=== PATIENT | female | born 1995 | race Caucasian/White ===

== ENCOUNTER → 2020-10-25 | Outpatient (CLI) | payer BC | LOC: M PLALAB 15:28 | PROVIDERS: ATTEND Advanced Practice Midwife | DX: Z34.81 Encounter for supervision of other normal pregnancy, first trimester (principal); Z3A.00 Weeks of gestation of pregnancy not specified ==

== ENCOUNTER → 2020-10-31 | Outpatient (REF) | payer BC | LOC: M SFHCWAGY 12:59 | PROVIDERS: ATTEND Advanced Practice Midwife | DX: O44.02 Complete placenta previa NOS or without hemorrhage, second trimester (principal); Z3A.00 Weeks of gestation of pregnancy not specified ==

== ENCOUNTER → 2020-12-21 | Outpatient (CLI) | payer BC ==
--- NOTE | 2020-12-21 12:44 | REP ---
INDICATION: ANATOMY COMPARISON: None. TECHNIQUE: Transabdominal obstetrical ultrasound with color Doppler evaluation. FINDINGS: Examination demonstrates a single live intrauterine in breech presentation. motion is identified by technologist. Placenta is noted posterior, grade 1 and low lying approximately 1.1 cm from the closed internal os. Amniotic fluid volume is normal. Cervix measures 4.8 cm in length and appears closed. Selected gestational age: 20 weeks 4 days with CARRINGTON 05/06/2021. Gestational age by current measurements 20 weeks 2 days with CARRINGTON 05/08/2021. FHR equals 144 beats per minute. Estimated weight 336 grams (25thpercentile). Anatomical assessment demonstrates normal structures including cranium, choroid plexus, cavum, cerebellum/posterior fossa, facial features, lungs, diaphragm, stomach, cord insertion/three-vessel cord, kidneys/bladder, spine, and extremities. Limited evaluation of the facial profile and heart/ventricular outflow tracts. IMPRESSION: 1. Single live intrauterine in breech presentation demonstrating appropriate estimated weight. 2. Low lying placenta 1.1 cm from the closed internal os. 3. Limited evaluation of the facial profile and heart/ventricular outflow tracts. Remainder of the anatomical assessment is complete and normal. <Electronically signed by Bharat Song > 12/21/20 [id number]
== END ==
LOC: M WHC 10:35
PROVIDERS: ATTEND Advanced Practice Midwife
DX: O44.02 Complete placenta previa NOS or without hemorrhage, second trimester (principal)

== ENCOUNTER → 2021-01-17 | Outpatient (CLI) | payer BC ==
--- NOTE | 2021-01-17 14:35 | REP ---
INDICATION: F/U ANATOMY/LOW LYING PLACENTA COMPARISON: 12/21/2020 TECHNIQUE: Transabdominal obstetrical ultrasound with color Doppler evaluation. FINDINGS: Examination demonstrates a single live intrauterine in cephalic presentation. motion is identified by technologist. Placenta is noted posterior and grade 1 without evidence for placenta previa or abruption. Amniotic fluid volume is normal. Cervix measures 4.4 cm in length and appears closed.. Selected gestational age: Twenty-four weeks 3 days with CARRINGTON 05/06/2021. Gestational age by current measurements 24 weeks 0 days with CARRINGTON 05/09/2021. FHR equals 139 beats per minute. Estimated weight 668 grams (30thpercentile). Anatomical assessment demonstrates normal structures including cranium, choroid plexus, cavum, cerebellum/posterior fossa, facial features, lungs, four-chamber heart/ventricular outflow tracts, diaphragm, stomach, cord insertion/three-vessel cord, kidneys/bladder, spine, and extremities. IMPRESSION: 1. Single live intrauterine in cephalic presentation. 2. Posterior grade 1 placenta without evidence for previa and no evidence for low lying position. 3. Anatomical assessment is complete and normal. <Electronically signed by Bharat Song > 01/17/21 [id number]
== END ==
LOC: M WHC 12:25
PROVIDERS: ATTEND Advanced Practice Midwife
DX: Z36.2 Encounter for other antenatal screening follow-up (principal); Z3A.24 24 weeks gestation of pregnancy

== ENCOUNTER → 2021-01-23 | Outpatient (CLI) | payer BC ==
[~2021-01-23] MED LIST: ACET-683 PO; COLA100C5 PO; IBUP-1022 PO; MULTTAB20 PO; TUMS750C5 PO
[2021-01-23 13:54] LABS: HEMATOCRIT 36.7 % (36.0-47.0); HEMOGLOBIN 11.9 g/dl (12.0-15.5); MEAN CORPUSCULAR HEMOGLOBIN 30.7 pg (27.0-33.0); MEAN CORPUSCULAR HGB CONC 32.4 g/dl (32.0-36.5); MEAN CORPUSCULAR VOLUME 94.6 fl (80.0-96.0); PLATELET COUNT, AUTOMATED 208 10^3/uL (150-450); RED BLOOD COUNT 3.88 10^6/uL (4.00-5.40); WHITE BLOOD COUNT 11.5 10^3/uL (4.0-10.0)
== END ==
LOC: M PLALAB 10:32
PROVIDERS: ATTEND Advanced Practice Midwife
DX: O44.42 Low lying placenta NOS or without hemorrhage, second trimester (principal); Z3A.00 Weeks of gestation of pregnancy not specified

== ENCOUNTER → 2021-04-08 | Outpatient (REF) | payer BC | LOC: M SFHCWAGY 17:41 | PROVIDERS: ATTEND Obstetrics & Gynecology | DX: Z34.03 Encounter for supervision of normal first pregnancy, third trimester (principal) ==

== ENCOUNTER → 2021-04-18 | Outpatient (CLI) | payer BC ==
--- NOTE | 2021-04-19 06:33 | REP ---
INDICATION: GROWTH LOW LYING PLACENAT NOS, OR WO HEMORRHAGE COMPARISON: 01/17/2021 TECHNIQUE: Transabdominal obstetrical ultrasound with color Doppler evaluation. FINDINGS: Examination demonstrates a single live intrauterine in cephalic presentation. motion is identified by technologist. Placenta is noted posterior and grade 2 without evidence for placenta previa or abruption. Amniotic fluid volume is normal. Cervix measures 3.9 cm in length and appears closed.. Selected gestational age: 37 weeks 3 days with CARRINGTON 05/06/2021. Gestational age by current measurements 37 weeks 1 day with CARRINGTON 05/08/2021. FHR equals 125 beats per minute. JASON: 11.4 cm Estimated weight 3119 grams (50thpercentile). IMPRESSION: Single live advanced gestation in cephalic presentation demonstrating appropriate estimated weight. <Electronically signed by Bharat Song > 04/19/21 0629
== END ==
LOC: M WHC 15:34
PROVIDERS: ATTEND Obstetrics & Gynecology
DX: O44.43 Low lying placenta NOS or without hemorrhage, third trimester (principal); Z3A.37 37 weeks gestation of pregnancy

== ENCOUNTER 2021-05-13 08:18 | Inpatient (IN) | payer BC ==
[~2021-05-13] VITALS: Ht 170.2 cm; Wt 87.2 kg
[2021-05-13] VITALS (26 sets, daily range): BP systolic 120–148; BP diastolic 61–95
[2021-05-13] MEDS ORDERED: MULTTAB20 PO (08:38)
[2021-05-13] MEDS ORDERED: TUMS750C5 PO (08:38)
[2021-05-13] MEDS ORDERED: HOME MED LIST COMPLETE! XX SCH (08:40)
[2021-05-13] MEDS ORDERED: LACTATED RINGER'S 1000 ML IV STA (08:43)
[2021-05-13] MEDS ORDERED: TRANEXAMIC ACID INJection 1,000 MG in NS 100 ML IV PRN (08:45)
[2021-05-13] MEDS ORDERED: LIDOCAINE 1% MDV 20ML VIAL INFIL PRN (08:45)
[2021-05-13] MEDS ORDERED: CARBOPROST TROMETHAMINE 250 MCG/ML AMP IM PRN (08:45)
[2021-05-13] MEDS ORDERED: METHYLERGONOVINE MALEATE 0.2 MG/ML VIAL (J2210) IM PRN (08:45)
[2021-05-13 09:42] LABS: HEMATOCRIT 36.6 % (36.0-47.0); HEMOGLOBIN 11.8 g/dl (12.0-15.5); MEAN CORPUSCULAR HEMOGLOBIN 30.6 pg (27.0-33.0); MEAN CORPUSCULAR HGB CONC 32.2 g/dl (32.0-36.5); MEAN CORPUSCULAR VOLUME 95.1 fl (80.0-96.0); PLATELET COUNT, AUTOMATED 194 10^3/uL (150-450); RED BLOOD COUNT 3.85 10^6/uL (4.00-5.40); WHITE BLOOD COUNT 11.7 10^3/uL (4.0-10.0)
[2021-05-13] MEDS: miSOPROStol 50MCG 1/2 TABLET PO SCH ×2 (10:28→16:03)
--- NOTE | 2021-05-13 12:11 | HPEPDOC ---
Obstetrical History & Physical General Date of Admission May 13, 2021 at 08:18 Primary Care Physician: AIDA DA SILVA CNM History of Present Illness Sia is a 26 year old at 41 weeks gestation with an CARRINGTON of 05/06/21 confirmed by first trimester ultrasound. She established care at [facility] and her has been complicated by + COVID 03/04/21 and low-lying placenta 1.1 cm from internal os, which resolved. She presents to labor and delivery for IOL for postdates . She reports good movement. She denies vaginal bleeding, uterine contractions, or loss of fluid. Chief Complaint: Induction of labor Information Provided By: Patient Age: 26 : 1 Term: 0 Pre-term: 0 Abortions: 0 Care Care: Good Care Dating Final EDC: May 06, 2021 Final EDC by: 1st trimester (US) LMP: Jul 30, 2020 EGA at Admission: 41 Antepartum Course Height (inches): 67 Pre- weight (lbs.): 165.2 Admission Weight (lbs.): 189.6 Change in Weight (lbs.): 24 Past Medical History Past Obstetrical History : Past Obstetrical History: [employer] History: No pertinent history Past Medical History Medical History + Covid in February Surgical History: Denies/None Family History Significant Family History: Cancer Family History mother and MGM with breast cancer, MGF with pancreatic cancer, PGF with bladder cancer Social History Social history FOB is present and supportive in room Marital Status: Single Family situation: Spouse/partner home Psychosocial History: No pertinent psych hx * Smoker: non-smoker Alcohol: Denies Drugs: denies Abuse Violence Screening Have you been hit/kicked/slapp: No Have you been sexually assault: No Allergies Coded Allergies: Penicillins (Verified Allergy, Intermediate, 05/13/21) Medications Scheduled No122/Iron/Folic Acid ( Multi Tablet) 1 Each Tablet, 1 TAB PO DAILY Scheduled PRN Calcium Carbonate (Tums) 300 Mg Tab.chew, 750 MG PO Q6HP PRN for HEARTBURN Physical Examination Physical Examination GENERAL: Alert and oriented times three. ABDOMEN: Gravid and non-tender to touch. FETUS: Is vertex (VTX) by sterile vaginal examination (SVE), fetus is vertex (VTX) by Jeff. SVE reveals 1/50%/-3. Cervix is posterior. FHR 120 with moderate variability absence of uterine contractions. LUNGS: Respiration regular and nonlabored, no use of accessory muscles. EXTREMITIES: Bilateral pedal edema. Vital Signs/I&O Vital Signs Date Time Temp Pulse Resp B/P (MAP) Pulse Ox O2 Delivery O2 Flow Rate FiO2 05/13/21 11:30 75 120/70 (87) 05/13/21 09:09 98.2 Laboratory Data 24H LABS Laboratory Tests 2 05/13/21 08:27: Serology Scanned Report Hepatitis B Testing 05/13/21 09:22: Nucleated Red Blood Cells % (auto) 0.0, Syphilis Serology NONREACTIVE CBC/BMP Laboratory Tests 05/13/21 09:22 Urine Culture: No Growth Pertinent Laboratoy Data Blood Type: O+ RBC Antibody Screen: Negative HIV: Negative Hepatitis B: Negative Hepatitis C: Negative Rapid Plasma Reagin: Nonreactive Rubella: Immune Varicella: Immune Chlamydia/Gonorrhea: Negative Group B Streptococcus: Negative Quad Screen Test: Negative Cystic Fibrosis: Negative Glucose Tolerance Test: 80 Anatomy Ultrasound Placenta Location: Posterior Normal Anatomy: Yes Placenta Previa: No (low lying placenta, 1.1 cm from internal os) Estimated Weight (grams): 336 Vaginal Examination Dilation: 1cm Effacement: 50% Station: -3 Cervical Consistency: Medium Cervical Position: Posterior Presentation: Cephalic presentation Assessment Heart Rate (FHR): 120 Variability: Moderate Accelerations: None Decelerations: None Tocometer Contractions: No Multi-drug resistant Organism: No history of MDRO Assessment/Plan Assessment IUP at 40 6/7, IOL for postdates, reassuring tracing, GBS negative Plan Admit to labor and delivery. Counselled on IOL, use of cytotec for cervical ripening, damon bulb when appropriate, and IV pitocin once cervix is favorable. Diet: regular. Group B Streptococcus (GBS) negative. Labs and intravenous (IV) per unit protocol. Anesthesia consult per patient request. Lactated Ringers (LR): Bolus 800 mL, then at 125 mL/hr prior to epidural if desired. Anticipate cervical ripening. AIDA DA SILVA CNM May 13, 2021 12:11
[2021-05-13] MEDS ORDERED: OXYTOCIN 30 UNITS IN 0.9% NaCl 500ML IV BAG (J2590) As Ordered ONE (20:17)
[2021-05-13] MEDS ORDERED: LR 1,000 ML IV SCH (20:25)
[2021-05-13] MEDS ORDERED: OXYTOCIN DRIP 30 UNITS in IV 1 EA IV SCH (20:25)
--- NOTE | 2021-05-13 20:25 | IPNPDOC ---
Obstetrical Progress Note Date of Service May 13, 2021 Subjective ambulating in room, coping well with induction Objective Vital Signs Date Time Temp Pulse Resp B/P (MAP) Pulse Ox O2 Delivery O2 Flow Rate FiO2 05/13/21 18:02 97.9 74 16 138/80 (99) 05/13/21 13:55 Room Air Assessment Heart Rate (FHR): 130 Variability: Moderate Accelerations: Positive Decelerations: None Heart Rate Tracing: Category I Tocometer Contractions: Yes Frequency: every 2-5 min. Strength: palpated as strong Sterile Vaginal Examination Dilation: 3 cm Effacement (%): 50% Station: -2 Cervical Consistency: Soft Cervical Position: Anterior Postion/Presentation: Cephalic presentation Assessment and Plan Age: 26 : 1 Term: 0 Pre-term: 0 Abortions: 0 Livin Weeks & Days 41.0 Status: Reassuring Group B Streptococcus: Negative Anticipate: Vaginal Delivery AIDA DA SILVA CNM May 13, 2021 20:25
[2021-05-13] MEDS ORDERED: FENTANYL 2MCG/ML ROPIVACAINE 0.2% IN 0.9% NACL 100ML IVBAG As Ordered ONE (21:45)
[2021-05-13] MEDS ORDERED: ONDANSETRON 4MG/2ML VIAL IV PRN (22:05)
[2021-05-13] MEDS ORDERED: ePHEDrine SULFATE 25 MG/5 ML(5MG/ML) SYRINGE IV PRN (22:05)
[2021-05-13] MEDS ORDERED: diphenhydrAMINE 50MG/ML VIAL (J1200) IV PRN (22:05)
[2021-05-13] MEDS ORDERED: REFRIGERATOR IV KEYS XX PRN (22:05)
[2021-05-13] MEDS ORDERED: NALOXONE INJ 0.4MG/1ML VIAL (J2310 PER 1MG) IV PRN (22:05)
[2021-05-13] MEDS ORDERED: FENTANYL/ROPIVACAINE/NACL BAG 100 ML EPIDURAL SCH (22:05)
[2021-05-13] MEDS ORDERED: EPIDURAL/PCA KEYS XX PRN (22:05)
[2021-05-13] MEDS ORDERED: EPIDURAL COMMENT XX SCH (22:05)
[2021-05-13] MEDS ORDERED: LACTATED RINGER'S 1000 ML IV PRN (22:05)
[2021-05-14] VITALS (17 sets, daily range): BP systolic 93–150; BP diastolic 56–78
[2021-05-14] MEDS ORDERED: CALCIUM CARBONATE 500 MG CHEW U/D PO PRN (00:30)
--- NOTE | 2021-05-14 01:16 | IPNPDOC ---
Obstetrical Progress Note Date of Service May 14, 2021 Subjective Patient reports she is comfortable with her epidural. Objective Vital Signs Date Time Temp Pulse Resp B/P (MAP) Pulse Ox O2 Delivery O2 Flow Rate FiO2 05/13/21 23:22 97.6 68 18 130/69 (89) Room Air 05/13/21 22:44 99 Assessment Heart Rate (FHR): 120 Variability: Moderate Decelerations: Late (resolved with position change after vaginal exam) Tocometer Contractions: Yes Frequency: regular, other (2 to 4 cm) Sterile Vaginal Examination Dilation: 4 cm (4-5 cm) Effacement (%): 80% Station: -1 Cervical Consistency: Soft Cervical Position: Anterior Postion/Presentation: Cephalic presentation Assessment and Plan Age: 26 : 1 Term: 0 Pre-term: 0 Abortions: 0 Livin EGA at Admission: 41 Weeks & Days 41.1 weeks gestation Status: Reassuring Group B Streptococcus: Negative Anticipate: Vaginal Delivery Additional Comments IV Pitocin is at 2 mu/min. AIDA DA SILVA CNM May 14, 2021 01:16
--- NOTE | 2021-05-14 07:16 | DNPDOC ---
[facility] Delivery Note Delivery Note DATE OF DELIVERY: 05/14/2021 PREDELIVERY DIAGNOSIS: 41-0/7 weeks' gestation and induction of labor. POST DELIVERY DIAGNOSIS: Delivered. PROCEDURE: Spontaneous vaginal delivery at 0643. BOOTH SUPERVISOR: Aida Messer CNM and VENTURA Crow ANESTHESIA: epidural. ESTIMATED BLOOD LOSS: 300 mL. FINDINGS: 6 pounds 11 ounces; 3020 grams, female , Score 9/9, nuchal cord times x 1. DELIVERY SUMMARY: Sia is a 26-year-old 1 now para 1001 who was admitted to labor and delivery for induction of labor for postdates. She was given misoprostol for cervical ripening and IV Pitocin for induction. She had SROM at 1740 to a large amount of clear fluid. She requested an epidural for pain management. Sia progressed to fully dilated at 0435 and pushed to a living female at 0643 in the BRITTANEY position with restitution to ROT. A nuchal cord x 1 was noted. The anterior shoulder was delivered with gentle downward traction and the corpus was somersaulted through the cord. [place] placed on maternal abdomen active and crying. The cord was clamped x2 after pulsation ceased and cut by the father of the baby. The placenta was delivered at 0648 via Carlson with intact membranes. Hemostasis was achieved with IV Pitocin and fundal massage. The cervix, vagina, and perineum was inspected and a first degree perineal laceration was noted and repaired with 3.[address]-1. Mom plans to breastfeed. Counts of instruments and sponges are correct. Mom and baby are in stable condition. AIDA MESSER CNM May 14, 2021 07:16
[2021-05-14] MEDS ORDERED: METHYLERGONOVINE MALEATE 0.2 MG TAB PO PRN (08:20)
[2021-05-14] MEDS ORDERED: ACETAMINOPHEN TAB 650MG DOSE (2X325MG) PO PRN (08:20)
[2021-05-14] MEDS ORDERED: DOCUSATE SODIUM 100MG CAPSULE PO PRN (08:20)
[2021-05-14] MEDS ORDERED: IBUPROFEN 600MG TAB PO PRN (08:20)
[2021-05-14] MEDS ORDERED: ANUSOL HC CREAM 30GM TOP PRN (08:20)
[2021-05-14] MEDS ORDERED: MEASLES,MUMPS,RUBELLA VACCINE INJ (MMR-II) (90707) SC SCH (08:20)
[2021-05-14] MEDS ORDERED: RHOGAM 300 MCG (1500 IU) INJ (J2790) IM SCH (08:20)
[2021-05-14] MEDS ORDERED: DIBUCAINE 1% OINTMENT 30GM TOP PRN (08:20)
[2021-05-14] MEDS ORDERED: MOM 30ML SUSPENSION UDC PO PRN (08:20)
[2021-05-14] MEDS: IBUPROFEN 800 MG TAB PO PRN ×2 (08:44→16:54)
[2021-05-14] MEDS: PRENATAL VITAMINS CHEWABLE TABLET PO SCH (09:46)
[2021-05-14] MEDS: ACETAMINOPHEN 500 MG TAB PO PRN (14:21)
[2021-05-15] MEDS: ACETAMINOPHEN 500 MG TAB PO PRN (01:37)
[2021-05-15 06:16] VITALS: BP 119/59
[2021-05-15] MEDS: PRENATAL VITAMINS CHEWABLE TABLET PO SCH (07:57)
[2021-05-15] MEDS: IBUPROFEN 800 MG TAB PO PRN ×2 (07:57→18:41)
[2021-05-15 18:04] VITALS: BP 126/66
[2021-05-16] MEDS: IBUPROFEN 800 MG TAB PO PRN (04:33)
[2021-05-16] MEDS: ACETAMINOPHEN 500 MG TAB PO PRN (05:39)
[2021-05-16 06:00] VITALS: BP 131/73
[2021-05-16] MEDS: PRENATAL VITAMINS CHEWABLE TABLET PO SCH (09:44)
[2021-05-16] MEDS ORDERED: ACET-683 PO (11:21)
[2021-05-16] MEDS ORDERED: COLA100C5 PO (11:21)
[2021-05-16] MEDS ORDERED: IBUP-1022 PO (11:21)
== END 2021-05-16 13:40 | disposition home or self-care (01) | DRG 560 ==
LOC: M LDI 08:18 → M OBS 05-14 09:23
PROVIDERS: ADMIT Advanced Practice Midwife; ATTEND Advanced Practice Midwife
PROC: 3E033VJ Introduction of Other Hormone into Peripheral Vein, Percutaneous Approach (ICD-10-PCS; 2021-05-13)
PROC: 3E0DXGC Introduction of Other Therapeutic Substance into Mouth and Pharynx, External Approach (ICD-10-PCS; 2021-05-13)
PROC: 10E0XZZ Delivery of Products of Conception, External Approach (ICD-10-PCS; principal; 2021-05-14)
PROC: 0HQ9XZZ Repair Perineum Skin, External Approach (ICD-10-PCS; 2021-05-14)
DX: O48.0 Post-term pregnancy (principal); O69.81X0 Labor and delivery complicated by cord around neck, without compression, not applicable or unspecified; Z37.0 Single live birth; Z3A.41 41 weeks gestation of pregnancy; Z88.0 Allergy status to penicillin; O70.0 First degree perineal laceration during delivery

== ENCOUNTER → 2021-09-20 | Outpatient (REF) | payer BC | LOC: M SFHCWAGY 17:12 | PROVIDERS: ATTEND Advanced Practice Midwife | DX: Z12.4 Encounter for screening for malignant neoplasm of cervix (principal) ==

== ENCOUNTER → 2021-09-20 | Outpatient (CLI) | payer BC | LOC: M PLALAB 14:51 | PROVIDERS: ATTEND Advanced Practice Midwife | DX: Z80.3 Family history of malignant neoplasm of breast (principal) ==

== ENCOUNTER → 2022-12-04 | Outpatient (CLI) | payer MEDICARE, OTHER ==
[2022-12-04 14:04] LABS: HEMATOCRIT 45.2 % (36.0-47.0); HEMOGLOBIN 14.7 g/dl (12.0-15.5); MEAN CORPUSCULAR HEMOGLOBIN 29.4 pg (27.0-33.0); MEAN CORPUSCULAR HGB CONC 32.5 g/dl (32.0-36.5); MEAN CORPUSCULAR VOLUME 90.4 fl (80.0-96.0); PLATELET COUNT, AUTOMATED 257 10^3/uL (150-450); WHITE BLOOD COUNT 9.7 10^3/uL (4.0-10.0)
[2022-12-04 15:00] LABS: HIV 1&2 SCREEN NEGATIVE (NEGATIVE)
[2022-12-04 15:08] LABS: HEPATITIS C VIRUS ABY INDEX < 0.0 INDEX (<0.8)
[2022-12-04 15:41] LABS: GC DNA AMPLIFICATION NEGATIVE (NEGATIVE)
== END ==
LOC: M PLALAB 10:23
PROVIDERS: ATTEND Obstetrics & Gynecology
DX: Z34.91 Encounter for supervision of normal pregnancy, unspecified, first trimester (principal)

== ENCOUNTER → 2023-02-03 | Outpatient (CLI) | payer MEDICARE, OTHER | LOC: M WHC 14:17 | PROVIDERS: ATTEND Obstetrics & Gynecology | DX: Z34.80 Encounter for supervision of other normal pregnancy, unspecified trimester (principal); Z3A.19 19 weeks gestation of pregnancy ==

== ENCOUNTER → 2023-03-27 | Outpatient (CLI) | payer OTHER ==
[2023-03-27 19:09] LABS: HEMATOCRIT 37.6 % (36.0-47.0); MEAN CORPUSCULAR HEMOGLOBIN 29.9 pg (27.0-33.0); MEAN CORPUSCULAR HGB CONC 31.9 g/dl (32.0-36.5); MEAN CORPUSCULAR VOLUME 93.8 fl (80.0-96.0); PLATELET COUNT, AUTOMATED 228 10^3/uL (150-450); RED BLOOD COUNT 4.01 10^6/uL (4.00-5.40); WHITE BLOOD COUNT 10.9 10^3/uL (4.0-10.0)
== END ==
LOC: M PLALAB 14:50
PROVIDERS: ATTEND Obstetrics & Gynecology
DX: Z34.92 Encounter for supervision of normal pregnancy, unspecified, second trimester (principal)

== ENCOUNTER → 2023-05-29 | Outpatient (REF) | payer OTHER, MEDICARE | LOC: M SFHCWAGY 16:56 | PROVIDERS: ATTEND Obstetrics & Gynecology | DX: Z36.89 Encounter for other specified antenatal screening (principal); Z3A.36 36 weeks gestation of pregnancy ==

== ENCOUNTER 2023-06-24 11:39 | Inpatient (IN) | payer OTHER, MEDICARE ==
[~2023-06-24] VITALS: Ht 170.2 cm; Wt 87.5 kg
[2023-06-24] VITALS (21 sets, daily range): BP systolic 112–148; BP diastolic 56–79; O2SAT 97
[2023-06-24] MEDS ORDERED: OXYTOCIN INJ 10UNITS/ML 1ML VIAL IM PRN (12:10)
[2023-06-24] MEDS ORDERED: METHYLERGONOVINE MALEATE 0.2MG/ML 1ML VIAL IM PRN (12:10)
[2023-06-24] MEDS ORDERED: LIDOCAINE 1% MDV 20ML VIAL INFIL PRN (12:10)
[2023-06-24] MEDS ORDERED: CARBOPROST TROMETHAMINE 250 MCG/ML AMP IM PRN (12:10)
[2023-06-24] MEDS ORDERED: TRANEXAMIC ACID INJection 1,000 MG in NS 100 ML IV PRN (12:10)
[2023-06-24] MEDS ORDERED: OXYTOCIN DRIP 30 UNITS in IV 1 EA IV PRN ×4 (12:10)
[2023-06-24 12:48] LABS: HEMATOCRIT 36.7 % (36.0-47.0); MEAN CORPUSCULAR HEMOGLOBIN 29.3 pg (27.0-33.0); MEAN CORPUSCULAR HGB CONC 32.7 g/dl (32.0-36.5); MEAN CORPUSCULAR VOLUME 89.7 fl (80.0-96.0); PLATELET COUNT, AUTOMATED 219 10^3/uL (150-450); RED BLOOD COUNT 4.09 10^6/uL (4.00-5.40)
[2023-06-24] MEDS ORDERED: OXYTOCIN DRIP 30 UNITS in IV 1 EA IV SCH (16:45)
[2023-06-24] MEDS: LR 1,000 ML IV SCH ×2 (17:02→18:53)
[2023-06-24] MEDS ORDERED: NALBUPHINE HCL 1MG/0.1ML (100MG/10ML) MDV IV ONE (17:50)
[2023-06-24] MEDS ORDERED: PROMETHAZINE 25MG/ML 1ML VIAL IV ONE (18:00)
[2023-06-24] MEDS ORDERED: LACTATED RINGER'S 1000 ML IV ONE (18:00)
[2023-06-24] MEDS ORDERED: FENTANYL/ROPIVACAINE/NACL BAG 100 ML EPIDURAL SCH (18:45)
[2023-06-24] MEDS ORDERED: diphenhydrAMINE 50MG/ML VIAL IV PRN (18:45)
[2023-06-24] MEDS ORDERED: NALOXONE INJ 0.4MG/1ML VIAL IV PRN (18:45)
[2023-06-24] MEDS ORDERED: LR 500 ML IV PRN (18:45)
[2023-06-24] MEDS ORDERED: ePHEDrine SULFATE 25 MG/5 ML(5MG/ML) SYRINGE IVP PRN (18:45)
[2023-06-24] MEDS ORDERED: EPIDURAL/PCA KEYS XX PRN (18:45)
[2023-06-24] MEDS ORDERED: ONDANSETRON 4MG 2ML VIAL IV PRN (18:45)
[2023-06-24] MEDS ORDERED: DOCUSATE SODIUM 100MG CAPSULE PO PRN (20:15)
[2023-06-24] MEDS ORDERED: DIBUCAINE 1% OINTMENT 30GM TOP PRN (20:15)
[2023-06-24] MEDS ORDERED: RHOGAM 300MCG (1500IU) INJ IM SCH (20:15)
[2023-06-24] MEDS ORDERED: IBUPROFEN 600MG TAB PO PRN (20:15)
[2023-06-24] MEDS ORDERED: ACETAMINOPHEN TAB 650MG DOSE (2X325MG) PO PRN (20:15)
[2023-06-24] MEDS ORDERED: METHYLERGONOVINE MALEATE 0.2 MG TAB PO PRN (20:15)
[2023-06-24] MEDS: IBUPROFEN 800 MG TAB PO PRN (23:41)
[2023-06-25] MEDS: ACETAMINOPHEN 500 MG TAB PO PRN ×2 (04:27→14:16)
[2023-06-25 06:00] VITALS: BP 110/59; O2SAT 98
[2023-06-25] MEDS: IBUPROFEN 800 MG TAB PO PRN ×2 (07:22→17:48)
[2023-06-25] MEDS ORDERED: PRENATAL VITAMINS CHEWABLE TABLET PO SCH (09:00)
[2023-06-25] MEDS ORDERED: IBUP80TA PO (17:17)
[2023-06-25] MEDS ORDERED: ACET-683 PO (17:17)
[2023-06-25] MEDS ORDERED: COLA100C5 PO (19:27)
[2023-06-26] MEDS ORDERED: MEASLES,MUMPS,RUBELLA VACCINE INJ (MMR-II) SC.IMMUN ONE (09:00)
== END 2023-06-25 21:45 | disposition home or self-care (01) | DRG 560 ==
LOC: M LDO 11:39 → M LDI 12:11 → M OBS 22:15
PROVIDERS: ADMIT Advanced Practice Midwife; ATTEND Advanced Practice Midwife
PROC: 10E0XZZ Delivery of Products of Conception, External Approach (ICD-10-PCS; principal; 2023-06-24)
PROC: 0HQ9XZZ Repair Perineum Skin, External Approach (ICD-10-PCS; 2023-06-24)
DX: O70.0 First degree perineal laceration during delivery (principal); Z37.0 Single live birth; Z3A.40 40 weeks gestation of pregnancy